=== PATIENT | female | born 1960 | race Caucasian/White ===

== ENCOUNTER 2016-06-21 10:17 | Emergency (ER) | payer OTHER ==
--- NOTE | 2016-06-21 11:25 | ER Document Report ---
ED Medical Screen (RME) - General Chief Complaint: Arm Problem Stated Complaint: RIGHT ARM PAIN Mode of Arrival: Ambulatory Information source: Patient TRAVEL OUTSIDE OF THE [place] IN LAST 30 DAYS: No - HPI Onset: Other - 2 DAYS Onset/Duration: Gradual Quality of pain: Burning Severity: Mild Associated Symptoms: denies: Chills, Fever, Sweating Exacerbated by: Movement Relieved by: Denies Similar symptoms previously: Yes - CELLULITIS Recently seen / treated by doctor: No - Related Data Allergies/Adverse Reactions: Cephalosporins Allergy (Verified 06/21/16 11:06) bee stings Allergy (Uncoded 06/21/16 11:06) Past Medical History - General Information source: Patient Renal/ Medical History: Denies: Hx Peritoneal Dialysis Past Surgical History: Reports: Hx Breast Surgery - R MASTECTOMY, Hx Gynecologic Surgery - OVARIAN CYST Physical Exam - Vital signs Vitals: Temp Pulse Resp BP Pulse Ox 98.3 F 94 20 137/75 H 97 06/21/16 10:33 06/21/16 10:33 06/21/16 10:33 06/21/16 10:33 06/21/16 10:33 Interpretation: Normal. No: Febrile - Extremities General upper extremity: No: Normal inspection Arm: Other - MILD REDNESS & EDEMA R. UPPER EXTREMITY TO MID-ARM Course - Vital Signs Vital signs: Temp Pulse Resp BP Pulse Ox 98.3 F 94 20 137/75 H 97 06/21/16 10:33 06/21/16 10:33 06/21/16 10:33 06/21/16 10:33 06/21/16 10:33
[2016-06-21 11:41] LABS: ABSOLUTE EOSINOPHILS # (AUTO) 0.1 10^3/uL (0.0-0.6); ABSOLUTE LYMPHOCYTES (AUTO) 1.4 10^3/uL (0.5-4.7); ABSOLUTE MONOCYTES (AUTO) 0.4 10^3/uL (0.1-1.4); ABSOLUTE NEUT (AUTO) 3.8 10^3/uL (1.7-8.2); BASOPHILS % (AUTO) 0.6 % (0-2); HEMATOCRIT 40.3 % (36.0-47.0); HEMOGLOBIN 13.5 g/dL (12.0-15.5); HGB HCT DIFFERENCE 0.2; LYMPHOCYTES % (AUTO) 24.8 % (13-45); MEAN CORPUSCULAR HEMOGLOBIN 28.2 pg (27.0-33.4); MEAN CORPUSCULAR HGB CONC 33.7 g/dL (32.0-36.0); MEAN CORPUSCULAR VOLUME 84 fl (80-97); MONOCYTES % (AUTO) 7.4 % (3-13); RED BLOOD COUNT 4.81 10^6/uL (3.72-5.28); RED CELL DISTRIBUTION WIDTH 14.1 % (11.5-14.0); SEGMENTED NEUTROPHILS % (AUTO) 66.2 % (42-78); WHITE BLOOD COUNT 5.8 10^3/uL (4.0-10.5)
[2016-06-21 11:58] LABS: ALANINE AMINOTRANSFERASE 55 U/L (9-52); ALBUMIN 3.9 g/dL (3.5-5.0); ALKALINE PHOSPHATASE 118 U/L (38-126); ANION GAP 12 (5-19); ASPARTATE AMINO TRANSFERASE 49 U/L (14-36); BILIRUBIN,DIRECT 0.1 mg/dL (0.0-0.4); BILIRUBIN,TOTAL 0.4 mg/dL (0.2-1.3); BLOOD UREA NITROGEN 12 mg/dL (7-20); CALCIUM 9.5 mg/dL (8.4-10.2); CARBON DIOXIDE 29 mmol/L (22-30); CHLORIDE 102 mmol/L (98-107); CREATININE RESULT 0.77 mg/dL (0.52-1.25); GLUCOSE 98 mg/dL (75-110); POTASSIUM 3.8 mmol/L (3.6-5.0); SODIUM 142.6 mmol/L (137-145); TOTAL PROTEIN 6.3 g/dL (6.3-8.2)
[2016-06-21] MEDS ORDERED: LIDOCAINE 1% INJ-PF (10 MG/ML) 30 ML SDV INFIL ONE (12:55)
[2016-06-21] MEDS ORDERED: CEFTRIAXONE INJ 1000 MG VIAL IM ONE (12:55)
[2016-06-21] MEDS ORDERED: CLINDAMYCIN HCL 150 MG CAPSULE PO ONE (12:55)
[2016-06-21] MEDS ORDERED: ONDANSETRON ODT 4 MG TAB (6 TAB/DSPK) PO PRN (12:56)
[2016-06-21] MEDS ORDERED: ONDANSETRON 4 MG TAB.RAPDIS PO ONE (12:56)
--- NOTE | 2016-06-21 13:21 | ER Document Report ---
ED General - General Chief Complaint: Arm Problem Stated Complaint: RIGHT ARM PAIN Mode of Arrival: Ambulatory TRAVEL OUTSIDE OF THE [place] IN LAST 30 DAYS: No - HPI Patient complains to provider of: right arm cellulitis Notes: Patient with a history of mastectomy on the right side has lymphedema coming in for erythema redness states she was at her PCP and [facility] follow-up after vasectomy yesterday was given clindamycin for one day states that the redness did improve however with this morning with more cellulitic process concern therefore came to the ER. Patient denies fevers chills nausea vomiting. Patient states that she has cleared with clindamycin before for cellulitis. Denies a fever - Related Data Allergies/Adverse Reactions: Cephalosporins Allergy (Verified 06/21/16 11:06) bee stings Allergy (Uncoded 06/21/16 11:06) Past Medical History - General Information source: Patient - Social History Smoking Status: Unknown if Ever Smoked Family History: Reviewed & Not Pertinent Patient has suicidal ideation: No Patient has homicidal ideation: No Renal/ Medical History: Denies: Hx Peritoneal Dialysis Past Surgical History: Reports: Hx Breast Surgery - R MASTECTOMY, Hx Gynecologic Surgery - OVARIAN CYST Review of Systems - Review of Systems Constitutional: No symptoms reported EENT: No symptoms reported Cardiovascular: No symptoms reported Respiratory: No symptoms reported Gastrointestinal: No symptoms reported Genitourinary: No symptoms reported Female Genitourinary: No symptoms reported Musculoskeletal: No symptoms reported Skin: Other - Cellulitis Hematologic/Lymphatic: No symptoms reported Neurological/Psychological: No symptoms reported Physical Exam - Vital signs Vitals: Temp Pulse Resp BP Pulse Ox 98.3 F 94 20 137/75 H 97 06/21/16 10:33 06/21/16 10:33 06/21/16 10:33 06/21/16 10:33 06/21/16 10:33 Interpretation: Normal - General General appearance: Appears well, Alert - HEENT Head: Normocephalic, Atraumatic Eyes: Normal Pupils: PERRL - Respiratory Respiratory status: No respiratory distress Chest status: Nontender Breath sounds: Normal Chest palpation: Normal - Cardiovascular Rhythm: Regular Heart sounds: Normal auscultation Murmur: No - Abdominal Inspection: Normal Distension: No distension Bowel sounds: Normal Tenderness: Nontender Organomegaly: No organomegaly - Back Back: Normal, Nontender - Extremities General upper extremity: Nontender, Normal color, Normal ROM, Normal temperature. No: Normal inspection - Patient with lymphedema and cellulitis on the lateral portion of the right arm General lower extremity: Normal inspection, Nontender, Normal color, Normal ROM , Normal temperature, Normal weight bearing. No: Reyna's sign - Neurological Neuro grossly intact: Yes Cognition: Normal Orientation: AAOx4 Bourg Coma Scale Eye Opening: Spontaneous Bourg Coma Scale Verbal: Oriented [place] Coma Scale Motor: Obeys Commands Bourg Coma Scale Total: 15 Speech: Normal Motor strength normal: LUE, RUE, LLE, RLE Sensory: Normal - Psychological Associated symptoms: Normal affect, Normal mood - Skin Skin Temperature: Warm Skin Moisture: Dry Skin Color: Normal Course - Re-evaluation Re-evalutation: 06/21/16 15:45 Long discussion with the patient. Patient has no signs of significant infection normal white count. Patient agrees with current outpatient management of clindamycin will give the patient at one time dose of Rocephin patient states she's had Rocephin before without for a wound check. Patient discharged - Vital Signs Vital signs: Temp Pulse Resp BP Pulse Ox 98.3 F 61 16 130/90 H 98 06/21/16 10:33 06/21/16 13:30 06/21/16 13:30 06/21/16 13:30 06/21/16 13:30 - Laboratory Result Diagrams: 06/21/16 11:28 06/21/16 11:28 Laboratory results interpreted by me: 06/21/16 06/21/16 11:28 11:28 RDW 14.1 H AST 49 H ALT 55 H Discharge - Discharge Clinical Impression: Cellulitis Qualifiers: Site of cellulitis of extremity: upper extremity Laterality: right Condition: Good Disposition: HOME, SELF-CARE Instructions: Cellulitis ([facility]), Clindamycin ([facility]) Additional Instructions: Your examination today is consistent with cellulitis. We will give you a shot of Rocephin and oral clindamycin. Please continue the antibiotics. I would highly recommend returning to the ER either Wednesday or Wednesday for wound check. I do work on Wednesday 6:00 AM and u can ask to be seen by myself. If symptoms worsen before that time please return earlier. Prescriptions: Ondansetron [Zofran Odt 4 mg Tablet] 4 mg PO Q4HP PRN #30 tab.rapdis PRN Reason: Clindamycin HCl 300 mg PO Q6 #40 capsule Forms: Return to Work
[2016-06-21 14:08] VITALS: BP 130/90
== END 2016-06-21 13:30 | disposition home or self-care (01) ==
LOC: ER 10:17
DX: L03.113 Cellulitis of right upper limb (principal); M79.601 Pain in right arm; Z90.11 Acquired absence of right breast and nipple; Z91.030 Bee allergy status
CPT/HCPCS: 99283; 96372; 36415; 85025; 80053; S0119; J3490; J0696